=== PATIENT | male | born 1985 | race African-American/Black ===

== ENCOUNTER 2025-04-06 14:31 | Emergency (ER) | payer MEDICAID ==
[~2025-04-06] VITALS: Ht 175.3 cm; Wt 91.0 kg
[~2025-04-06 14:31] MED LIST: ATOR10TA69 PO; BACL-141 MT; DOCU-422 MT; ESCI-7 MT; LACT-390 PO; LEVO-65 MT; LOSA1TAB34 MT; MAGN400T26 MT; METO-539 PO; SENN-362 PO; SUCR1TAB PO; THIA100T72 PO
[2025-04-06 14:35] VITALS: O2SAT 99
[2025-04-06] MEDS: ONDANSETRON HCL 4MG/2ML INJ IV ONE ×2 (16:49→20:36)
[2025-04-06 16:50] VITALS: BP 146/97; PULSE 82; RESP 16
[2025-04-06] MEDS: FAMOTIDINE 20MG/2ML VIAL IV ONE (16:50)
[2025-04-06] MEDS: MORPHINE SULFATE 4 MG/ML INJ (FOR IV/IM USE) IV ONE (16:50)
[2025-04-06] MEDS: SODIUM CHLORIDE 0.9% 1,000 ML IV ONE (16:50)
[2025-04-06 17:20] LABS: BASOPHILS % 0.8 % (0.0-2.0); EOSINOPHILS % 0.1 % (0.0-5.0); HEMATOCRIT. 41.6 % (42.0-52.0); HEMOGLOBIN. 14.1 g/dL (14.0-18.0); LYMPHOCYTES % 12.3 % (20.0-50.0); MEAN PLATELET VOLUME 9.7 fl (7.4-10.4); MONOCYTES % 10.8 % (2.0-8.0); NEUTROPHILS % 76.0 % (40.0-76.0); PLATELET 135 x1000/uL (130-400); RED BLOOD CELL COUNT 3.77 mill/uL (4.7-6.1); RED CELL DISTRIBUTION WIDTH 14.0 % (11.6-14.6)
[2025-04-06 17:24] LABS: ADD RBC MORPHOLOGY YES
[2025-04-06 17:32] LABS: INR 1.0
[2025-04-06 17:35] LABS: CREATININE 0.9 mg/dL (0.6-1.3); UREA NITROGEN BLOOD < 5 mg/dL (9-23)
[2025-04-06 17:37] LABS: ASPARTATE AMINOTRANSFERASE 284 IU/L (<34); BILIRUBIN DIRECT 0.9 mg/dL (<=3.0); BILIRUBIN TOTAL 2.2 mg/dL (0.1-1.0)
[2025-04-06 17:39] LABS: PROTEIN TOTAL 8.2 g/dL (6.0-8.3)
[2025-04-06] MEDS: PANTOPRAZOLE 80 MG in SODIUM CHLORIDE 0.9% 100 ML IV ONE (17:42)
[2025-04-06 17:52] LABS: PLATELET ESTIMATE NORMAL
[2025-04-06] MEDS: GABAPENTIN 300MG CAPSULE PO ONE (20:36)
[2025-04-06] MEDS ORDERED: FAMO20TA8 MT (21:13)
[2025-04-06] MEDS ORDERED: OMEP20TA23 MT (21:13)
[2025-04-06] MEDS ORDERED: ONDA-239 PO (21:13)
[2025-04-06] MEDS ORDERED: GABA-1180 MT (21:13)
[2025-04-06] MEDS ORDERED: HYDR50TA55 MT (21:17)
[2025-04-06] MEDS: HYDROXYZINE 25MG TABLET PO ONE (21:33)
== END 2025-04-06 21:38 | disposition home or self-care (01) ==
LOC: ER 14:31
DX: K21.9 Gastro-esophageal reflux disease without esophagitis (principal); E78.00 Pure hypercholesterolemia, unspecified; F10.20 Alcohol dependence, uncomplicated; I10 Essential (primary) hypertension; K57.30 Diverticulosis of large intestine without perforation or abscess without bleeding; K76.0 Fatty (change of) liver, not elsewhere classified; K81.9 Cholecystitis, unspecified; Z79.899 Other long term (current) drug therapy; Z87.11 Personal history of peptic ulcer disease; M79.601 Pain in right arm; M79.602 Pain in left arm; Y90.9 Presence of alcohol in blood, level not specified
CPT/HCPCS: 80076; 80048; 83690; 85025; 85610; 85730; 86850; 86900; 86901; 36415; 71045; 74176; 76705; 96361; 96365; 96375; 99285; J1308; J2405; J2470; J2270; J7050; J7030; Z7610 ×3